=== PATIENT | female | born 1990 | race Caucasian/White ===

== ENCOUNTER 2017-04-27 16:05 | Emergency (ER) | payer SELFPAY ==
[2017-04-27 16:11] VITALS: BP 131/80
[2017-04-27] MEDS ORDERED: LIDOCAINE 2% VISCOUS SOLN 20 ML UDCUP PO ONE (16:29)
--- NOTE | 2017-04-27 16:33 | ER Document Report ---
HPI - HPI Pain Level: 2 Notes: Patient is a 26-year-old female with no significant past medical history who presents to the ED complaining of right dental pain to #301 week. Patient states that she was in correction and just got out recently, but had her tooth pulled while she is in correction by dentist 5 days ago. Patient states that she was told there is an infection there, but was not placed on any antibiotics. Patient states that she has not noticed any abscess or purulent discharge. She is eating and drinking without difficulties. She is urinating normally having normal bowel movements. She does admit to smoking but denies IV drug use. Denies any headache, fever, head injury, neck pain, URI, sore throat, chest pain , palpitations, syncope, cough, shortness of breath, wheeze, dyspnea, abdominal pain, nausea/vomiting/diarrhea, urinary retention, dysuria, hematuria, or rash. - ROS Systems Reviewed and Negative: Yes All other systems reviewed and negative - REPRODUCTIVE Reproductive: DENIES: : Past Medical History - Social History Smoking Status: Current Every Day Smoker Family History: Reviewed & Not Pertinent Pulmonary Medical History: Reports: Hx Asthma - Immunizations Hx Diphtheria, Pertussis, Tetanus Vaccination: Yes Vertical Provider Document - CONSTITUTIONAL Agree With Documented VS: Yes Notes: PHYSICAL EXAMINATION: GENERAL: Well-appearing, well-nourished and in no acute distress. HEAD: Atraumatic, normocephalic. EYES: Pupils equal round and reactive to light, extraocular movements intact, sclera anicteric, conjunctiva are normal. ENT: EAC clear b/l. TM's intact b/l without erythema, fluid, or perforation. Nares patent and without discharge. oropharynx clear without exudates. No tonsilar hypertrophy or erythema. Moist mucous membranes. No sinus tenderness. Uvula midline. No palatine shift. No tongue protrusion. No respiratory compromise. Mouth: Poor dentition. Tooth excised at locatin of pain. + mild decay and mild gingivitis throughout. No obvious abscess or discharge noted. No facial swelling. + tenderness to gums around #30. NECK: Normal range of motion, supple without lymphadenopathy. No rigidity/ meningismus. LUNGS: Breath sounds clear to auscultation bilaterally and equal. No wheezes rales or rhonchi. HEART: Regular rate and rhythm without murmurs, rubs, gallops. NEUROLOGICAL: Cranial nerves grossly intact. Normal speech, normal gait. Normal sensory, motor exams PSYCH: Normal mood, normal affect. SKIN: Warm, Dry, normal turgor, no rashes or lesions noted. - INFECTION CONTROL TRAVEL OUTSIDE OF THE [place] IN LAST 30 DAYS: No - RESPIRATORY O2 Sat by Pulse Oximetry: 100 Course - Re-evaluation Re-evalutation: 04/27/17 16:31 Patient is an afebrile, well-hydrated, 26-year-old female who presents to the ED with dental pain, suspect infection. Vitals are acceptable. PE is otherwise unremarkable. No labs or imaging warranted at this time based on H& P. I will send her home with a prescription for lidocaine as well as penicillin. Low suspicion for any meningitis, sepsis, peritonsillar/pharyngeal abscess, respiratory compromise, Fernie's, temporal arteritis, or other emergent systemic condition at this time. Patient is aware this condition can change from initial presentation and she needs to monitor symptoms closely. Conservative measures otherwise for symptoms. Call to schedule an appointment with a dentist for further evaluation and management. Recheck with your PCM this week as well. Return to the ED with any worsening/concerning symptoms otherwise as reviewed in discharge. Patient is in agreement. - Vital Signs Vital signs: Temp Pulse Resp BP Pulse Ox 98.5 F 86 18 131/80 H 100 04/27/17 16:08 04/27/17 16:08 04/27/17 16:08 04/27/17 16:08 04/27/17 16:08 Discharge - Discharge Clinical Impression: Mouth pain Condition: Stable Disposition: HOME, SELF-CARE Instructions: Penicillin V K ([facility]), Dentist Additional Instructions: [place] and floss twice daily Maintain fluid intake Take antibiotics as directed Mouthwash, salt water gargles, peroxide rinse as needed Tylenol/ibuprofen as needed Recheck with PCM this week Call today/tomorrow and schedule an appointment with your dentist for further evaluation Return to the ED with any worsening symptoms and/or development of fever, headache, facial swelling, swelling of lips/tongue/throat, trouble swallowing, drooling, hoarseness, neck pain/stiffness, chest pain, palpitations, syncope, shortness of breath, trouble breathing, abdominal pain, n/v/d, numbness/tingling , or other worsening symptoms that are concerning to you. Prescriptions: Penicillin V Potassium [Penicillin Vk 250 mg Tablet] 500 mg PO BID #40 tablet Forms: Elevated Blood Pressure, Smoking Cessation Education Referrals: [facility] [Provider Group] - Follow up as needed [facility] [Provider Group] - Follow up as needed
== END 2017-04-27 16:57 | disposition home or self-care (01) ==
LOC: ER 16:05
DX: K13.79 Other lesions of oral mucosa (principal); K08.9 Disorder of teeth and supporting structures, unspecified; F17.200 Nicotine dependence, unspecified, uncomplicated
CPT/HCPCS: 99282; J3490

== ENCOUNTER 2018-02-26 19:47 | Emergency (ER) | payer SELFPAY ==
[2018-02-26] MEDS ORDERED: ONDANSETRON 4 MG TAB.RAPDIS PO ONE (20:56)
--- NOTE | 2018-02-26 21:13 | ER Document Report ---
HPI - HPI Time Seen by Provider: 02/26/18 20:48 Pain Level: Denies Notes: Patient is a 27-year-old female who presents to the emergency department complaining of intermittent nausea and vomiting over the last couple weeks and is wondering if she is . Patient did not take any home test. Patient states that she is still able to eat and drink and is able to keep most of it down. She is urinating normally and having normal bowel movements. She has not noticed any vaginal discharge, odor, or bleeding. She does not have any associated pain or discomfort. Denies drug allergies. Denies any headache, fever, neck pain, URI, sore throat, chest pain, palpitations, syncope, cough, shortness of breath, wheeze, dyspnea, abdominal pain, diarrhea, urinary retention, dysuria, hematuria, or rash. The nurse informed me that she used heroine yesterday. - ROS Systems Reviewed and Negative: Yes All other systems reviewed and negative - REPRODUCTIVE Reproductive: DENIES: : Past Medical History - Social History Smoking Status: Current Every Day Smoker Frequency of alcohol use: Occasional Drug Abuse: Heroin Family History: Reviewed & Not Pertinent Patient has suicidal ideation: No Patient has homicidal ideation: No Pulmonary Medical History: Reports: Hx Asthma Renal/ Medical History: Denies: Hx Peritoneal Dialysis - Immunizations Hx Diphtheria, Pertussis, Tetanus Vaccination: Yes Vertical Provider Document - CONSTITUTIONAL Agree With Documented VS: Yes Notes: PHYSICAL EXAMINATION: GENERAL: Well-appearing, well-nourished and in no acute distress. HEAD: Atraumatic, normocephalic. EYES: Pupils equal round and reactive to light, extraocular movements intact, sclera anicteric, conjunctiva are normal. ENT: Nares patent and without discharge. oropharynx clear without exudates. No tonsilar hypertrophy or erythema. Moist mucous membranes. NECK: Normal range of motion, supple without lymphadenopathy LUNGS: Breath sounds clear to auscultation bilaterally and equal. No wheezes rales or rhonchi. HEART: Regular rate and rhythm without murmurs, rubs, gallops. ABDOMEN: Soft, nontender, nondistended abdomen. No guarding, no rebound. No masses appreciated. Normal bowel sounds present. No CVA tenderness bilaterally. [place] neg. No tenderness at McBurney point. Musculoskeletal: FROM to passive/active. Strength 5+/5. Extremities: No cyanosis, clubbing, or edema b/l. Peripheral pulses 2+. Capillary refill less than 3 seconds. NEUROLOGICAL: Cranial nerves grossly intact. Normal speech, normal gait. Normal sensory, motor exams PSYCH: Normal mood, normal affect. SKIN: Warm, Dry, normal turgor, no rashes or lesions noted. - INFECTION CONTROL TRAVEL OUTSIDE OF THE [place] IN LAST 30 DAYS: No Course - Re-evaluation Re-evalutation: 02/26/18 22:18 Patient is an afebrile, well-hydrated, 27-year-old female who presents to the emergency department with nausea and vomiting and requesting test. Vitals are acceptable without significant tachycardia, tachypnea, or hypoxia. PE is otherwise unremarkable. Patient's abdomen is soft nontender. She is nontoxic-appearing and is tolerating p.o. without difficulty. She has not had any episodes of emesis throughout her stay. Patient states that she is feeling well. Urinalysis unremarkable. HCG negative. Patient's urine drug screen did come back positive for marijuana, amphetamines, and opiates. No further labs or imaging warranted at this time. Low suspicion/risk for acute appendicitis, bowel obstruction, acute cholecystitis, acute cholangitis, perforated diverticulitis, incarcerated hernia, pancreatitis, perforated ulcer, peritonitis, sepsis, pelvic inflammatory disease, ectopic , tubo- ovarian abscess, ovarian torsion, or other systemic emergent condition at this time. Patient is aware that her condition can change from initial presentation and she needs to monitor symptoms closely and seek medical attention if any acute changes. I will sent home with prescription for Zofran. Conservative measures otherwise for symptoms. Recheck with your PCM in 2-3 days. Consider consult with a media analytics manager. Return to the ED with any worsening/concerning symptoms otherwise as reviewed in discharge. Patient is in agreement. - Vital Signs Vital signs: Temp Pulse Resp BP Pulse Ox 98.3 F 65 16 104/66 98 02/26/18 20:03 02/26/18 20:03 02/26/18 20:03 02/26/18 20:03 02/26/18 20:03 Discharge - Discharge Clinical Impression: Nausea and vomiting Qualifiers: Vomiting type: unspecified Vomiting Intractability: non-intractable Qualified Code(s): R11.2 - Nausea with vomiting, unspecified Condition: Stable Disposition: HOME, SELF-CARE Instructions: Antinausea Medication ([facility]), Vomiting ([facility]) Additional Instructions: Maintain adequate fluid and food intake [place] diet ([employer] Bananas, rice, apples, toast, etc Zofran as needed tylenol if needed Monitor for any worsening symptoms Make sure you are staying hydrated enough to urinate and have normal BM's Recheck with your PCM in 2-3 days Consider consult with Gastroenterology for ongoing/worsening symptoms Return to the ED with any worsening symptoms and/or development of fever, headache, chest pain, palpitations, syncope, shortness of breath, trouble breathing, abdominal pain, n/v/d, blood in stool/urine, weakness, or other worsening symptoms that are concerning to you. Prescriptions: Ondansetron [Zofran Odt 4 mg Tablet] 1 - 2 tab PO Q4H PRN #15 tab.rapdis PRN Reason: For Nausea/Vomiting Forms: Smoking Cessation Education Referrals: FLIP COX MD [ACTIVE STAFF] - Follow up as needed
[2018-02-26 21:29] LABS: APPEARANCE,URINE CLEAR; BILIRUBIN,URINE NEGATIVE (NEGATIVE); COLOR,URINE YELLOW; GLUCOSE, URINE NEGATIVE (NEGATIVE); KETONES,URINE NEGATIVE (NEGATIVE); LEUKOCYTE ESTERASE,URINE NEGATIVE (NEGATIVE); NITRITE,URINE NEGATIVE (NEGATIVE); PROTEIN,URINE NEGATIVE (NEGATIVE); URINE SPECIFIC GRAVITY 1.013
[2018-02-26 21:43] LABS: URINE AMPHETAMINES SCREEN UNCONFIRMED POSITIVE; URINE BARBITURATES SCREEN NEGATIVE; URINE BENZODIAZEPINES SCREEN NEGATIVE; URINE COCAINE SCREEN NEGATIVE; URINE MARIJUANA (THC) SCREEN UNCONFIRMED POSITIVE; URINE METHADONE SCREEN NEGATIVE; URINE PHENCYCLIDINE SCREEN NEGATIVE
[2018-02-26] MEDS ORDERED: ALBUTEROL SULFATE HFA (90 MCG/PUFF) 8 GM MDI (1 MDI/ER DISP) IH ONE (22:30)
[2018-02-26 22:32] VITALS: BP 109/74
== END 2018-02-26 22:34 | disposition home or self-care (01) ==
LOC: ER 19:47
DX: R11.2 Nausea with vomiting, unspecified (principal); F17.200 Nicotine dependence, unspecified, uncomplicated
CPT/HCPCS: 99284; 87086; 81025; 81001; 80307; S0119; J3490

== ENCOUNTER 2018-07-31 17:22 | Emergency (ER) | payer SELFPAY ==
[2018-07-31 17:27] VITALS: BP 110/64
[2018-07-31] MEDS ORDERED: LIDOCAINE 2% VISCOUS SOLN 20 ML UDCUP PO ONE (17:33)
--- NOTE | 2018-07-31 17:59 | ER Document Report ---
HPI - HPI Time Seen by Provider: 07/31/18 17:50 Pain Level: 3 Notes: Patient is a 27-year-old female with no significant past medical history who presents complaining of dental pain a #12 for the past several days. Patient is requesting an antibiotic. She has had dental issues in the past. She has not seen a dentist for this complaint. She is still able to eat and drink without difficulty and she is urinating normally. Denies drug allergies. She has not noticed any purulent discharge or significant swelling of her face. Denies any headache, fever, neck pain, URI, sore throat, chest pain, palpitations, syncope, cough, shortness of breath, wheeze, dyspnea, abdominal pain, nausea/vomiting/diarrhea, urinary retention, dysuria, hematuria, or rash. - ROS Systems Reviewed and Negative: Yes All other systems reviewed and negative - REPRODUCTIVE Reproductive: DENIES: : Past Medical History - Social History Smoking Status: Current Every Day Smoker Family History: Reviewed & Not Pertinent Pulmonary Medical History: Reports: Hx Asthma Renal/ Medical History: Denies: Hx Peritoneal Dialysis - Immunizations Hx Diphtheria, Pertussis, Tetanus Vaccination: Yes Vertical Provider Document - CONSTITUTIONAL Agree With Documented VS: Yes Notes: PHYSICAL EXAMINATION: GENERAL: Well-appearing, well-nourished and in no acute distress. HEAD: Atraumatic, normocephalic. EYES: Pupils equal round and reactive to light, extraocular movements intact, sclera anicteric, conjunctiva are normal. ENT: EAC clear b/l. TM's intact b/l without erythema, fluid, or perforation. Nares patent and without discharge. oropharynx clear without exudates. No tonsilar hypertrophy or erythema. Moist mucous membranes. No sinus tenderness. Uvula midline. No palatine shift. No tongue protrusion. No respiratory compromise. Mouth: Poor dentition. + severe decay and mild gingivitis. No obvious abscess or discharge noted. No facial swelling. + tenderness to tooth #12. NECK: Normal range of motion, supple without lymphadenopathy. No rigidity/meningismus. LUNGS: Breath sounds clear to auscultation bilaterally and equal. No wheezes rales or rhonchi. HEART: Regular rate and rhythm without murmurs, rubs, gallops. NEUROLOGICAL: Cranial nerves grossly intact. Normal speech, normal gait. Normal sensory, motor exams PSYCH: Normal mood, normal affect. SKIN: Warm, Dry, normal turgor, no rashes or lesions noted. - INFECTION CONTROL TRAVEL OUTSIDE OF THE [place] IN LAST 30 DAYS: No Course - Re-evaluation Re-evalutation: 07/31/18 17:57 Patient is an afebrile, well-hydrated, 27-year-old female who presents to the ED with dental pain, suspect nerve root etiology versus infection. Vitals are acceptable. PE is otherwise unremarkable. No I&D, labs, or imaging warranted at this time based on H&P. Viscous lidocaine dispensed today. I will send her home with a prescription for penicillin which worked well for her in the past. Low suspicion for any meningitis, sepsis, peritonsillar/pharyngeal abscess, respiratory compromise, Fernie's, temporal arteritis, or other emergent systemic condition at this time. Patient is aware this condition can change from initial presentation and she needs to monitor symptoms closely. Conservative measures otherwise for symptoms. Call to schedule an appointment with a dentist for further evaluation and management. Recheck with your PCM this week as well. Return to the ED with any worsening/concerning symptoms otherwise as reviewed in discharge. Patient is in agreement. - Vital Signs Vital signs: Temp Pulse Resp BP Pulse Ox 99.3 F 88 18 110/64 97 07/31/18 17:25 07/31/18 17:25 07/31/18 17:25 07/31/18 17:25 07/31/18 17:25 Discharge - Discharge Clinical Impression: Pain, dental Condition: Stable Disposition: HOME, SELF-CARE Instructions: Toothache ([facility]), Penicillin V K ([facility]) Additional Instructions: [place] and floss twice daily Maintain fluid intake Take antibiotics as directed Mouthwash, salt water gargles, peroxide rinse as needed Tylenol/ibuprofen as needed Recheck with PCM this week Call and schedule an appointment with your dentist for further evaluation Return to the ED with any worsening symptoms and/or development of fever, headache, facial swelling, swelling of lips/tongue/throat, trouble swallowing, drooling, hoarseness, neck pain/stiffness, chest pain, palpitations, syncope, shortness of breath, trouble breathing, abdominal pain, n/v/d, numbness/tingling, or other worsening symptoms that are concerning to you. Prescriptions: Penicillin V Potassium [Penicillin Vk 250 mg Tablet] 500 mg PO BID #40 tablet Forms: Smoking Cessation Education Referrals: [facility] [Provider Group] - Follow up in 1 week
== END 2018-07-31 18:16 | disposition home or self-care (01) ==
LOC: ER 17:22
DX: K02.9 Dental caries, unspecified (principal); K05.10 Chronic gingivitis, plaque induced; K08.89 Other specified disorders of teeth and supporting structures
CPT/HCPCS: 99282; J3490

== ENCOUNTER 2019-06-15 10:42 | Emergency (ER) | payer SELFPAY ==
[2019-06-15] MEDS ORDERED: CEFTRIAXONE INJ 1000 MG VIAL IM ONE (11:27)
[2019-06-15] MEDS ORDERED: LIDOCAINE 1% INJ-PF (10 MG/ML) 30 ML SDV INJ ONE (11:27)
--- NOTE | 2019-06-15 11:31 | ER Document Report ---
HPI - HPI Time Seen by Provider: 06/15/19 11:20 Pain Level: 3 Notes: 28-year-old female presents emergency room for what she suspects is a spider bite to her nose that she noticed proximately 2 days ago. She started to squeeze it nothing came out. Has not tried any [id number] medications, worse with time, nothing is better. Denies having history of MRSA. Redness is only on nose. Denies any other area of injury. Denies fevers, chills, chest pain,palpitations, shortness of breath, dyspnea, nausea, vomiting, diarrhea, abdominal pain, hematuria,blurred vision, double vision, loss of vision, speech changes, LH, dizziness, syncope, headaches, wheezing, ST, URI, neck pain, weakness, bowel or bladder dysfunction, saddle anesthesia, numbness or tingling in bilateral upper or lower extremities equally, muscle paralysis, weakness in bilateral upper or lower extremities equally or other rash. Denies IV drug use. - REPRODUCTIVE Reproductive: DENIES: : Past Medical History - General Information source: Patient - Social History Smoking Status: Current Every Day Smoker Family History: Reviewed & Not Pertinent Patient has homicidal ideation: No Pulmonary Medical History: Reports: Hx Asthma Renal/ Medical History: Denies: Hx Peritoneal Dialysis - Immunizations Hx Diphtheria, Pertussis, Tetanus Vaccination: Yes Vertical Provider Document - CONSTITUTIONAL Agree With Documented VS: Yes Exam Limitations: No Limitations General Appearance: WD/WN Notes: PHYSICAL EXAMINATION: reviewed vital signs by RN GENERAL: Well-appearing, well-nourished and in no acute distress. HEAD: Atraumatic, normocephalic. EYES: Pupils equal round and reactive to light, extraocular movements intact, conjunctiva are normal. ENT: Nares patent, oropharynx clear without exudates. Moist mucous membranes. Turbinates boggy but nares patent bilaterally NECK: Normal range of motion, supple without lymphadenopathy LUNGS: Breath sounds clear to auscultation bilaterally and equal. No wheezes rales or rhonchi. HEART: Regular rate and rhythm without murmurs ABDOMEN: Soft, nontender, nondistended abdomen. No guarding, no rebound. No masses appreciated. Female : deferred Musculoskeletal: Normal range of motion, no pitting or edema. No cyanosis. NEUROLOGICAL: Cranial nerves grossly intact. Normal speech, normal gait. Normal sensory, motor exams PSYCH: Normal mood, normal affect. SKIN: Warm, Dry, normal turgor, no rashes or lesions noted. Bridge of nose with erythema approximately 1 cm x 1 cm with clear drainage. No surrounding erythema, swelling. - INFECTION CONTROL TRAVEL OUTSIDE OF THE [place] IN LAST 30 DAYS: No Course - Re-evaluation Re-evalutation: 06/15/19 12:42 Afebrile vital stable no distress. Nurses notes reviewed. Patient presents with symptoms most consistent with an acute cellulitis on her nose.1 g Rocephin given and patient will be started on oral Bactrim. vitals within normal limits. P atient does not meet sepsis criteria is overall very well in appearance. Patient will be started on coverage for both staph and strep. after performing a Medical Screening Examination, I estimate there is LOW risk for any life threatening rash. At this time the patient looks extremely well and there are no signs of systemic infection, however this may change at any time and the rash may change. I have reevaluated this patient multiple times and no significant life threatening changes are noted. The patient and I have discussed the diagnosis and risks, and we agree with discharging home with close follow-up with the understanding that symptoms and presentations can change. At this time will discharge with return precautions and follow-up recommendations. Verbal discharge instructions given a the bedside and opportunity for questions given. Medication warnings reviewed. Patient is in agreement with this plan and has verbalized understanding of return precautions and the need for primary care follow-up in the next 24 hours in the ED since she does not have a PCP but she will be discharged with a PCP to also follow up with as well. We also discussed returning to the Emergency Department immediately if new or worsening symptoms occur. We have discussed the symptoms which are most concerning (e.g., changing or worsening pain, fever, numbness, headache, neck pain, weakness,) that necessitate immediate return. 06/15/19 12:43 - Vital Signs Vital signs: Temp Pulse Resp BP Pulse Ox 98.1 F 89 14 122/81 100 06/15/19 11:17 06/15/19 10:46 06/15/19 10:46 06/15/19 10:46 06/15/19 10:46 Discharge - Discharge Clinical Impression: Cellulitis and abscess of face Condition: Stable Disposition: HOME, SELF-CARE Instructions: Cellulitis ([facility]), MRSA Cellulitis ([facility]), Rocephin ([facility]), Trimethoprim-Sulfa ([facility]) Additional Instructions: Is return tomorrow for reevaluation of your wound. You were given 1 g Rocephin today. You will be starting on Bactrim which is an antibiotic which you need to take twice a day for 10 days. Apply warm compress to site 20 minutes on 20 minutes off several times a day. The rash is likely due to infection of your skin. You need to take the antibiotics as prescribed. Do not stop even if the rash goes away until you have completed all the antibiotics. The area of redness was traced out here in the emergency department with a marking pen. You need to return to emergency department if the redness spreads outside of this area by more than 2 cm in any direction. You should also return if you develop fevers with temperature greater than 101, persistent vomiting, worsening pain, or have any other symptoms that are concerning to you. Return immediately for any new or worsening symptoms. Follow up with primary care provider, call tomorrow to make followup appointment. Prescriptions: Sulfamethoxazole/Trimethoprim [Bactrim Ds Tablet] 1 each PO BID #20 tablet Referrals: EARLENE NEWTON MD [COMMUNITY BASED STAFF] - Follow up as needed
[2019-06-15 12:03] VITALS: BP 101/67
== END 2019-06-15 12:03 | disposition home or self-care (01) ==
LOC: ER 10:42
DX: L02.01 Cutaneous abscess of face (principal); L03.211 Cellulitis of face; F17.200 Nicotine dependence, unspecified, uncomplicated; J45.909 Unspecified asthma, uncomplicated
CPT/HCPCS: 99283; 96372; 87070; 87205; J3490; J0696

== ENCOUNTER 2019-07-22 01:48 | Emergency (ER) | payer SELFPAY ==
[2019-07-22] MEDS ORDERED: NORMAL SALINE 1000 ML 1,000 ML IV ONE (04:12)
[2019-07-22] MEDS ORDERED: CLINDAMYCIN 900 MG/D5W RTU 900 MG/50 ML RTUPB IV ONE (04:12)
[2019-07-22] MEDS ORDERED: KETOROLAC TROMETHAMINE INJ/PF 30 MG/1 ML SDV IV ONE (04:12)
--- NOTE | 2019-07-22 04:13 | ER Document Report ---
ED General - General Stated Complaint: RIGHT ARM ABSCESS Notes: Patient is a 28-year-old white female with a history of drug abuse, reports "ice" who presents to the emergency department with a chief complaint of redness swelling and pain to the right medial elbow for the past few days. She denies any known fever, nausea, vomiting or diarrhea. Denies history of any abscess formations. TRAVEL OUTSIDE OF THE [place] IN LAST 30 DAYS: No - Related Data Allergies/Adverse Reactions: No Known Allergies Allergy (Unverified 04/27/17 16:06) Past Medical History - Social History Smoking Status: Unknown if Ever Smoked Family History: Reviewed & Not Pertinent Pulmonary Medical History: Reports: Hx Asthma Renal/ Medical History: Denies: Hx Peritoneal Dialysis - Immunizations Hx Diphtheria, Pertussis, Tetanus Vaccination: Yes Review of Systems - Review of Systems Skin: Change in color -: Yes All other systems reviewed and negative Physical Exam - Vital signs Vitals: Temp Pulse Resp BP Pulse Ox 100.0 F 105 H 20 109/59 L 98 07/22/19 02:35 07/22/19 02:35 07/22/19 02:35 07/22/19 02:35 07/22/19 02:35 - General General appearance: Appears well, Alert In distress: None - Respiratory Respiratory status: No respiratory distress Chest status: Nontender Breath sounds: Normal Chest palpation: Normal - Cardiovascular Rhythm: Regular Heart sounds: Normal auscultation - Neurological Neuro grossly intact: Yes Cognition: Normal Orientation: AAOx4 - Psychological Associated symptoms: Normal affect, Normal mood - Skin Skin Color: Other - Moderately erythematous area with minimal pointing to the right medial distal brachium/elbow region. There is some questionable fluctuance at the pointing. There is mild expanding cellulitis but no proximal streaking. Area is exquisitely tender to touch. Course - Re-evaluation Re-evalutation: 07/22/19 04:19 In presence of nurse patient adamantly refuses I&D. Risks of this decision including but not limited to worsening of her condition, and permanent neurological condition were discussed. She verbalized understood but states she would like to trial antibiotics before any interventional or invasive procedures are performed. She will trial antibiotics for the next 48 hours and monitor closely and return immediately if worsening. Counseled her at length regarding the importance of outpatient follow-up and advised that she return here or any ER immediately with any new, persistent or worsening symptoms. She verbalized understood and agreed. 07/22/19 07:30 Patient resting comfortably room at this time. Blood work returned showing a 19,000 white count with left shift. Patient is afebrile, nontoxic in appearance with otherwise normal vital signs. I offered admission for management of this, she declined stating she would rather trial outpatient treatment. She admits that she will be faithful to the treatment regimen. We discussed risks of this at length. We again discussed I&D which she again declined stating she would rather trial noninvasive therapies first. The cellulitis was outlined with a surgical marker. I advised if the cellulitis expands beyond the borders that she return for reevaluation, likely requiring I&D and possible admission. We discussed drug abuse. She will utilize warm moist compress applications. She will obtain clindamycin. Discussed with her the importance of wound reevaluation and 48 hours. Advised she return here or any ER immediately with any new, persistent or worsening symptoms. She verbalized understood and agreed. - Vital Signs Vital signs: Temp Pulse Resp BP Pulse Ox 97.8 F 97 17 106/59 L 96 07/22/19 04:31 07/22/19 04:30 07/22/19 04:30 07/22/19 04:30 07/22/19 04:30 - Laboratory Result Diagrams: 07/22/19 06:55 07/22/19 06:55 Laboratory results interpreted by me: 07/22/19 07/22/19 06:55 06:55 WBC 19.4 H Lymph % (Auto) 9.5 L Absolute Neuts (auto) 15.3 H Absolute Monos (auto) 2.1 H Seg Neutrophils % 78.6 H Sodium 135.8 L Creatinine 0.48 L Glucose 111 H Total Protein 6.2 L Albumin 3.1 L Discharge - Discharge Clinical Impression: Cellulitis and abscess of upper extremity Condition: Stable Disposition: HOME, SELF-CARE Instructions: MRSA Cellulitis ([facility]), Abscess ([facility]) Additional Instructions: Follow-up with your regular doctor in 2 to 3 days for reevaluation. Return here or any ER immediately with any new, persistent or worsening symptoms. Prescriptions: Clindamycin HCl 300 mg PO Q6 #40 capsule
[2019-07-22 07:21] LABS: ABSOLUTE BASOPHILS # (AUTO) 0.1 10^3/uL (0.0-0.2); ABSOLUTE EOSINOPHILS # (AUTO) 0.1 10^3/uL (0.0-0.6); ABSOLUTE LYMPHOCYTES (AUTO) 1.8 10^3/uL (0.5-4.7); ABSOLUTE MONOCYTES (AUTO) 2.1 10^3/uL (0.1-1.4); ABSOLUTE NEUT (AUTO) 15.3 10^3/uL (1.7-8.2); BASOPHILS % (AUTO) 0.5 % (0-2); EOSINOPHILS % (AUTO) 0.5 % (0-6); HEMATOCRIT 36.7 % (36.0-47.0); HEMOGLOBIN 12.2 g/dL (12.0-15.5); LYMPHOCYTES % (AUTO) 9.5 % (13-45); MEAN CORPUSCULAR HEMOGLOBIN 29.1 pg (27.0-33.4); MEAN CORPUSCULAR HGB CONC 33.4 g/dL (32.0-36.0); MEAN CORPUSCULAR VOLUME 87 fl (80-97); MONOCYTES % (AUTO) 10.9 % (3-13); PLATELET COUNT 272 10^3/uL (150-450); RED CELL DISTRIBUTION WIDTH 13.4 % (11.5-14.0); SEGMENTED NEUTROPHILS % (AUTO) 78.6 % (42-78); TOTAL CELLS COUNTED % (AUTO) 100 %; WHITE BLOOD COUNT 19.4 10^3/uL (4.0-10.5)
[2019-07-22 07:39] LABS: ALBUMIN 3.1 g/dL (3.5-5.0); ALKALINE PHOSPHATASE 81 U/L (38-126); ANION GAP 6 (5-19); ASPARTATE AMINO TRANSFERASE 26 U/L (14-36); BILIRUBIN,TOTAL 0.8 mg/dL (0.2-1.3); BLOOD UREA NITROGEN 7 mg/dL (7-20); CALCIUM 8.4 mg/dL (8.4-10.2); CARBON DIOXIDE 24 mmol/L (22-30); CHLORIDE 106 mmol/L (98-107); GLUCOSE 111 mg/dL (75-110); POTASSIUM 3.9 mmol/L (3.6-5.0); TOTAL PROTEIN 6.2 g/dL (6.3-8.2)
[2019-07-22 08:20] VITALS: BP 98/51
== END 2019-07-22 08:19 | disposition home or self-care (01) ==
LOC: ER 01:48
DX: L03.113 Cellulitis of right upper limb (principal); L02.413 Cutaneous abscess of right upper limb; J45.909 Unspecified asthma, uncomplicated
CPT/HCPCS: 96365; 99283; 96361; 96375; 36415; 87040; 84703; 85025; 80053; J3490; J1885; J7030